=== PATIENT | female | born 1975 | race Caucasian/White ===

== ENCOUNTER 2018-05-24 19:30 | Emergency (ER) | payer OTHER ==
[2018-05-24 20:47] LABS: URINE BLOOD (Dip) POC 1+ (NEGATIVE); URINE GLUCOSE (Dip) POC Negative (NEGATIVE); URINE KETONES (Dip) POC Negative (NEGATIVE); URINE LEUKOCYTE EST (Dip) POC Negative (NEGATIVE); URINE NITRITE (Dip) POC Negative (NEGATIVE); URINE TOTAL PROTEIN POC 1+ (NEGATIVE)
[2018-05-24 20:47] LABS: URINE PH (Dip) POC 7.5 (5.0-8.5)
[2018-05-24] MEDS: ONDANSETRON (ODT) 4 MG TAB ODT (20:50)
[2018-05-24] MEDS: KETOROLAC 30 MG INJ IM (20:54)
== END 2018-05-24 21:48 | disposition home or self-care (01) ==
LOC: FTE 19:30
DX: R03.0 Elevated blood-pressure reading, without diagnosis of hypertension (principal); N89.8 Other specified noninflammatory disorders of vagina
CPT/HCPCS: 81003; 81025; 96372; 99284-25

== ENCOUNTER 2018-08-28 11:59 | Emergency (ER) | payer OTHER ==
[2018-08-28] MEDS: KETOROLAC 30 MG INJ IM (13:44)
[2018-08-28 13:55] LABS: URINE BLOOD (Dip) POC 2+ (NEGATIVE); URINE GLUCOSE (Dip) POC Negative (NEGATIVE); URINE KETONES (Dip) POC Negative (NEGATIVE); URINE LEUKOCYTE EST (Dip) POC Negative (NEGATIVE); URINE NITRITE (Dip) POC Negative (NEGATIVE); URINE TOTAL PROTEIN POC Negative (NEGATIVE)
== END 2018-08-28 15:17 | disposition home or self-care (01) ==
LOC: FTE 11:59
DX: M75.91 Shoulder lesion, unspecified, right shoulder (principal); J06.9 Acute upper respiratory infection, unspecified; I10 Essential (primary) hypertension
CPT/HCPCS: 73030; 73030-RT; 81003; 81025; 96372; 99284-25